=== PATIENT | male | born 1950 | race Caucasian/White ===

== ENCOUNTER 2019-10-17 14:31 | Inpatient (IN) ==
[2019-10-17] MEDS ORDERED: TUBERSOL ID ONE (16:17)
[2019-10-17] MEDS ORDERED: SENOKOT PO PRN (16:17)
[2019-10-17] MEDS ORDERED: DESYREL PO PRN (16:17)
[2019-10-17] MEDS ORDERED: IMODIUM PO PRN (16:17)
[2019-10-17] MEDS ORDERED: ZOFRAN IV PRN (16:17)
[2019-10-17] MEDS ORDERED: MOTRIN PO PRN (16:17)
[2019-10-17] MEDS ORDERED: SEROQUEL PO PRN (16:17)
[2019-10-17] MEDS ORDERED: SALINE LOCK IV FLUID XX ONE (16:17)
[2019-10-17] MEDS ORDERED: ROBAXIN PO PRN (16:17)
[2019-10-17] MEDS ORDERED: PHENOBARBITAL IV PRN (16:17)
[2019-10-17] MEDS ORDERED: MAALOX PLUS LIQUID PO PRN (16:17)
[2019-10-17] MEDS ORDERED: NICODERM PATCH TD PRN (16:17)
[2019-10-17] MEDS ORDERED: BENTYL PO PRN (16:17)
[2019-10-17] MEDS ORDERED: ATARAX PO PRN (16:17)
[2019-10-17] MEDS ORDERED: ZOFRAN ODT PO PRN (16:17)
[2019-10-17] MEDS ORDERED: DULCOLAX PR PRN (16:17)
[2019-10-17] MEDS ORDERED: TYLENOL PO PRN (16:17)
[2019-10-17] MEDS ORDERED: D5W 1,000 ML IV PRN (16:17)
[2019-10-17 16:34] LABS: URINE SOURCE VOIDED
[2019-10-17 16:37] LABS: BILIRUBIN URINE NEGATIVE (NEGATIVE); BLOOD URINE MODERATE (NEGATIVE); COLOR YELLOW; GLUCOSE URINE >1000 mg/dL (NEGATIVE); KETONE URINE >150 mg/dL (NEGATIVE); LEUKOCYTES URINE NEGATIVE (NEGATIVE); NITRITE URINE NEGATIVE (NEGATIVE); PROTEIN URINE 200 mg/dL (NEGATIVE); SP GRAVITY URINE 1.027; TURBIDITY URINE CLEAR (CLEAR); UROBILINOGEN URINE NORMAL (NORMAL)
[2019-10-17 16:39] LABS: UR EPITHELIAL CELLS <10 /HPF (<10); URINE BACTERIA NEGATIVE /HPF; URINE RBC <10 /HPF (<10); URINE WBC <10 /HPF (<10)
[2019-10-17 16:48] LABS: UR AMPHETAMINES QUAL NONE DETECTED (NONE DETECT); UR BARBITUATES QUAL NONE DETECTED (NONE DETECT); UR BENZODIAZEPIN QUAL NONE DETECTED (NONE DETECT); UR CANNABINOIDS QUAL NONE DETECTED (NONE DETECT); UR COCAINE QUAL NONE DETECTED (NONE DETECT); UR METHADONE QUAL NONE DETECTED (NONE DETECT); UR METHAMPHETAMINE QUAL NONE DETECTED (NONE DETECT); UR OPIATES QUAL NONE DETECTED (NONE DETECT); UR OXYCODONE QUAL NONE DETECTED (NONE DETECT); UR PCP QUAL NONE DETECTED (NONE DETECT); UR PROPOXYPHENE QUAL NONE DETECTED (NONE DETECT); UR TCA QUAL NONE DETECTED (NONE DETECT)
[2019-10-17 17:11] LABS: HEMATOCRIT 51.7 % (42.0-52.0); HEMOGLOBIN 17.2 g/dL (14.0-18.0); MCHC 33.3 g/dL (33-37); MPV 10.7 FL (7.4-10.4); RBC 5.22 XMIL (4.7-6.1); RDW 14.3 % (11.5-14.5); WBC 9.42 X1000 (4.8-10.8)
[2019-10-17 17:33] LABS: INR 0.94
[2019-10-17 17:52] LABS: AMYLASE 70 U/L (20-200); LIPASE 30 U/L (13-60)
[2019-10-17 17:57] LABS: AGAP 24; ALBUMIN 4.9 g/dL (3.5-5.0); ALKALINE PHOSPHATASE 51 U/L (32-122); BUN 14 mg/dL (8-22); CALCIUM 9.6 mg/dL (8.8-10.2); CHLORIDE 96 mmol/L (98-107); COSMO 282; CREATININE 0.7 mg/dL (0.7-1.2); ESTIMATED GFR > 60; GLUCOSE 101 mg/dL (70-104); GOT 83 U/L (10-34); GPT 75 U/L (10-44); POTASSIUM 4.4 mmol/L (3.5-5.1); SODIUM 141 mmol/L (136-145); TCO2 22 mmol/L (25-35); TOTAL PROTEIN 7.5 g/dL (6.3-8.3)
[2019-10-17] MEDS: LIBRIUM PO SCH (18:20)
[2019-10-18] MEDS: LIBRIUM PO SCH ×4 (00:25→17:43)
[2019-10-18] MEDS: PROTONIX PO SCH (06:21)
[2019-10-18] MEDS: FOLIC ACID PO SCH (08:03)
[2019-10-18] MEDS: THERA M PLUS PO SCH (08:03)
[2019-10-18] MEDS: VITAMIN B-1 PO SCH (08:03)
[2019-10-18] MEDS: M.V.I.-12 10 ML, FOLIC ACID 1 MG, MAGNESIUM SULFATE 1 GM, THIAMINE 100 MG in NS 1,000 ML IV ONE ×2 (08:04→10:09)
--- NOTE | 2019-10-18 17:26 | PROGRESS NOTE ---
DATE: 10/18/2019 SUBJECTIVE: The patient notes he is feeling a lot better. Denies any fevers or chills. Denies tremors. Denies myalgias currently. PHYSICAL EXAMINATION: Vital Signs: Reviewed. He is awake, alert. He is in no respiratory distress. HEENT: Normocephalic. Neck: Supple. Cardiovascular: Regular rate. Chest: Clear. Abdomen: Soft. Extremities: Moves all extremities. Neurologic: No focal changes. Skin: Warm and dry. No rashes. ASSESSMENT: 1. Nausea and vomiting. 2. Abdominal pain. 3. Myalgias. 4. Paresthesias. 5. Alcohol abuse, withdrawal, and stabilization. 6. Hypertension. 7. High cholesterol. PLAN: We will continue the patient in the hospital. Continue Librium taper. Further orders as needed. cc: Lukas Estrada MD
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
[2019-10-19] MEDS: LIBRIUM PO SCH ×3 (00:26→20:31)
[2019-10-19] MEDS: PROTONIX PO SCH (06:00)
[2019-10-19] MEDS: VITAMIN B-1 PO SCH (09:17)
[2019-10-19] MEDS: THERA M PLUS PO SCH (09:17)
[2019-10-19] MEDS: FOLIC ACID PO SCH (09:17)
[2019-10-19] MEDS ORDERED: LIBRIUM PO SCH (13:00)
--- NOTE | 2019-10-19 18:07 | PROGRESS NOTE ---
DATE: 10/19/2019 SUBJECTIVE: Patient with no current complaints. Patient notes he is feeling better overall. Denies any current fevers or chills. Denies cough or congestion. States he is still weak. He is having some tremulousness, but it is improving. PHYSICAL EXAMINATION: Vital Signs: Reviewed and stable. General: He is awake and alert. He is in no distress. HEENT: Normocephalic. Neck: Supple. Cardiovascular: Regular rate. Chest: Clear. Abdomen: Soft. ASSESSMENT: 1. Nausea and vomiting. 2. Abdominal pain. 3. Tremors. 4. Generalized fatigue. 5. Alcohol abuse withdrawal and stabilization. PLAN: We will continue patient in the hospital today. Continue to wean Librium. If he tolerates, hopefully he can discharge home with Vivitrol tomorrow. cc: Lukas Estrada MD
[2019-10-20] MEDS: PROTONIX PO SCH (06:29)
[2019-10-20 07:46] VITALS: BP 139/81
[2019-10-20] MEDS ORDERED: VIVITROL IM ONE (08:32)
[2019-10-20] MEDS: LIBRIUM PO SCH (08:49)
[2019-10-20] MEDS: THERA M PLUS PO SCH (08:49)
[2019-10-20] MEDS: VITAMIN B-1 PO SCH (08:49)
[2019-10-20] MEDS: FOLIC ACID PO SCH (08:49)
--- NOTE | 2019-10-20 18:18 | DISCHARGE SUMMARY ---
ADMISSION DATE: 10/17/2019 DISCHARGE DATE: 10/20/2019 DISCHARGE DIAGNOSES: 1. Nausea and vomiting. 2. Abdominal pain. 3. Myalgias. 4. Paresthesias. 5. Paroxysmal sweating. 6. Alcohol abuse withdrawal and stabilization. CONSULTATIONS: None. PROCEDURES: None. BRIEF HOSPITAL COURSE: Patient is a very pleasant 69-year-old male who has done very well in the hospital. He was admitted secondary to alcohol withdrawal. Placed on high-dose Librium. We continued to wean down. On discharge, he is awake, alert. He is in no distress. Notes that his symptoms have all but resolved. Currently, he has no issues. DISPOSITION: We will discharge him home. He is awake, alert, oriented. He is ambulating without any difficulty. I did give him 1st shot of Vivitrol in the hospital. Certainly would prefer to continue this as an outpatient for at least 6 months. If not, discussed with him the use of naltrexone. Greater than 30 minutes was spent in total care. cc: Lukas Estrada MD
== END 2019-10-20 11:50 | disposition home or self-care (01) | DRG 897 ==
LOC: P.DIRADM 15:17 → P.MEDSURG 15:42
PROVIDERS: ADMIT Family Medicine; ATTEND Family Medicine